=== PATIENT | male | born 1940 | race Caucasian/White ===

== ENCOUNTER 2017-01-19 09:43 | Emergency (ER) | payer MEDICARE ==
--- NOTE | 2017-01-19 10:02 | EDM.PDOC ---
[facility] GENERAL MEDICAL PROBLEM - General Chief Complaint: Gastrointestinal Problem Stated Complaint: CONSTIPATION Time Seen by Provider: 01/19/17 09:49 Source of Information: Reports: Patient History Limitations: Reports: No Limitations - History of Present Illness INITIAL COMMENTS - FREE TEXT/NARRATIVE: Patient reports AAA repair one month ago and has had poor bowel movements since. He is passing small, round, hard stool. No nausea or vomiting. Denies fever. He has tried milk of magnesia, colace, fiber, he readily admits not ambulating or drinking enough. He did quit smoking this year after smoking 1 PPD for 60 years. Medical history includes COPD with symbicort inhaler. He has taken some prune juice to no avail. 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 (see below) (as listed in HPI narrative) - Related Data Allergies Allergy/AdvReac Type Severity Reaction Status Date / Time niacin Allergy Rash Verified 01/19/17 11:26 RAGWEED Allergy Itching Uncoded 01/19/17 11:26 Home Meds: Home Meds Albuterol [Ventolin HFA] 1 puff INH Q4H PRN 11/02/13 [History] Aspirin [Halfprin] 81 mg PO DAILY 11/02/13 [History] Budesonide/Formoterol [Symbicort 160-4.5 MCG] 2 puff INH BID 11/02/13 [History] Social & Family History - Alcohol Use Days Per Week of Alcohol Use: 0 - Recreational Drug Use Recreational Drug Use: No ED ROS GENERAL - Review of Systems Review Of Systems: See Below Constitutional: Reports: No Symptoms HEENT: Reports: No Symptoms Respiratory: Reports: No Symptoms Cardiovascular: Reports: No Symptoms Endocrine: Reports: No Symptoms GI/Abdominal: Reports: Abdominal Pain, Constipation : Reports: No Symptoms Musculoskeletal: Reports: No Symptoms Skin: Reports: No Symptoms Neurological: Reports: No Symptoms Psychiatric: Reports: No Symptoms Hematologic/Lymphatic: Reports: No Symptoms Immunologic: Reports: No Symptoms ED EXAM, GI/ABD - Physical Exam Exam: See Below Exam Limited By: No Limitations General Appearance: Alert, WD/WN, Mild Distress Eyes: Bilateral: EOMI Head: Atraumatic, Normocephalic Respiratory/Chest: No Respiratory Distress, Lungs Clear, Normal Breath Sounds Cardiovascular: Normal Peripheral Pulses, Regular Rate, Rhythm, No Edema GI/Abdominal: Soft, Non-Tender, Hypoactive Bowel Sounds Extremities: Normal Inspection Neurological: Alert, Oriented, CN II-XII Intact, Normal Cognition Psychiatric: Normal Affect, Normal Mood Skin Exam: Warm, Dry, Intact Course - Vital Signs Last Recorded V/S: Last Vital Signs Temp 36.1 C 01/19/17 10:02 Pulse 79 01/19/17 10:02 Resp 20 01/19/17 10:02 BP 143/69 H 01/19/17 10:02 Pulse Ox 97 01/19/17 10:02 - Orders/Labs/Meds Orders: Active Orders 24 hr Category Date Time Status Abdomen 2V AP Flat Upright [CR] Urgent Exams 01/19/17 10:14 Taken Sodium Chloride 0.9% [Saline Flush] Med 01/19/17 10:03 Active 10 ml FLUSH ASDIRECTED PRN Saline Lock Insert [OM.PC] Routine Oth 01/19/17 10:03 Ordered Medication Orders Sodium Chloride (Saline Flush) 10 ml FLUSH ASDIRECTED PRN PRN Reason: Keep Vein Open Meds: Medications Generic Name Dose Route Start Last Admin Trade Name Freq PRN Reason Stop Dose Admin Sodium Chloride 10 ml 01/19/17 10:03 Saline Flush FLUSH ASDIRECTED PRN Keep Vein Open Discontinued Medications Generic Name Dose Route Start Last Admin Trade Name Freq PRN Reason Stop Dose Admin Bisacodyl 10 mg 01/19/17 11:00 01/19/17 11:07 Dulcolax RECTAL 01/19/17 11:01 10 mg ONETIME ONE Administration Sodium Chloride 1,000 mls @ 999 mls/hr 01/19/17 10:03 01/19/17 10:26 Normal Saline IV 01/19/17 11:03 999 mls/hr ONETIME ONE Administration Magnesium Hydroxide 30 ml 01/19/17 10:03 01/19/17 10:39 Milk Of Magnesia PO 01/19/17 10:04 30 ml ONETIME ONE Administration Senna/Docusate Sodium 2 tab 01/19/17 10:03 01/19/17 10:38 Senna Plus PO 01/19/17 10:04 2 tab ONETIME ONE Administration Sodium Biphosphate/Sodium Phosphate 133 ml 01/19/17 10:05 01/19/17 11:15 Fleet Enema RECTAL 01/19/17 10:06 1 dose ONETIME ONE Administration Departure - Departure Time of Disposition: 12:08 Disposition: Home, Self-Care 01 Clinical Impression: Constipation Qualifiers: Constipation type: other constipation type Qualified Code(s): K59.09 - Other constipation - Discharge Information Instructions: Constipation, Adult Referrals: Anabela Louis PA-C [Primary Care Provider] - Forms: ED Department Discharge Additional Instructions: 1. Increase your water intake to at least 75 oz daily. 2. Increase your walking as this will increase your bowel movements. 3. Increase your colace to two tablets twice daily until you are having regular bowel movements. Reduce to one tablet twice daily after that. 4. Increase your intake of fresh fruits and vegetables. 5. Follow up with your primary provider as needed. 6. You can continue to take fiber, but this will actually constipate you if you are not drinking enough water. Please call us with any questions or concerns. - Problem List & Annotations (1) Constipation SNOMED Code(s): 56233020 Code(s): K59.00 - CONSTIPATION, UNSPECIFIED Status: Acute Current Visit: Yes Qualifiers: Constipation type: other constipation type Qualified Code(s): K59.09 - Other constipation - Problem List Review Problem List Initiated/Reviewed/Updated: Yes - My Orders Last 24 Hours: My Active Orders 01/19/17 10:03 Sodium Chloride 0.9% [Saline Flush] 10 ml FLUSH ASDIRECTED PRN Saline Lock Insert [OM.PC] Routine 01/19/17 10:14 Abdomen 2V AP Flat Upright [CR] Urgent - Assessment/Plan Last 24 Hours: My Active Orders 01/19/17 10:03 Sodium Chloride 0.9% [Saline Flush] 10 ml FLUSH ASDIRECTED PRN Saline Lock Insert [OM.PC] Routine 01/19/17 10:14 Abdomen 2V AP Flat Upright [CR] Urgent Assessment:: post surgical constipation Plan: 1. Increase your water intake to at least 75 oz daily. 2. Increase your walking as this will increase your bowel movements. 3. Increase your colace to two tablets twice daily until you are having regular bowel movements. Reduce to one tablet twice daily after that. 4. Increase your intake of fresh fruits and vegetables. 5. Follow up with your primary provider as needed. 6. You can continue to take fiber, but this will actually constipate you if you are not drinking enough water. Please call us with any questions or concerns.
[2017-01-19 10:03] VITALS: BP 143/69
[2017-01-19] MEDS ORDERED: Sodium Chloride 0.9% 10 ML Syringe FLUSH PRN (10:03)
[2017-01-19] MEDS ORDERED: Magnesium Hydroxide 400 MG/5 ML Susp 30 ML Cup PO ONE (10:03)
[2017-01-19] MEDS ORDERED: Sodium Chloride 0.9% 1,000 ML IV ONE (10:03)
[2017-01-19] MEDS ORDERED: Sodium Phosphate,Monobasic/Sodium Phosphate,Dibasic Enema 133 ML Bottle RECTAL ONE (10:05)
[2017-01-19] MEDS ORDERED: Bisacodyl 10 MG Supp RECTAL ONE (11:00)
== END 2017-01-19 12:14 | disposition home or self-care (01) ==
LOC: SUPCPDRO 09:43 → VM.ED 09:43
DX: K59.09 Other constipation (principal); J44.9 Chronic obstructive pulmonary disease, unspecified; Z88.8 Allergy status to other drugs, medicaments and biological substances; Z91.048 Other nonmedicinal substance allergy status; Z79.82 Long term (current) use of aspirin; Z87.891 Personal history of nicotine dependence
CPT/HCPCS: 74020; 96365; 96366; 99283; A9270; J7030

== ENCOUNTER 2022-07-13 09:14 | Observation (INO) | payer MEDICARE ==
[2022-07-13] MEDS ORDERED: Meclizine 25 MG Tab PO ONE (09:33)
[2022-07-13] MEDS ORDERED: Sodium Chloride 0.9% 1,000 ML IV ONE (09:33)
[2022-07-13] MEDS ORDERED: Ondansetron 4 MG/2 ML SDV IVPUSH ONE (09:33)
[2022-07-13 09:58] LABS: CHLORIDE,CL 97 mmol/L (98-107); SODIUM,NA 137 mmol/L (136-145)
[2022-07-13 10:01] LABS: ANION GAP 5.4 mmol/L (5-15); ESTIMATED GFR 93 mL/min (>=60)
[2022-07-13 10:22] LABS: CORONAVIRUS COVID-19 NAA NEGATIVE (NEGATIVE)
[2022-07-13] MEDS ORDERED: Iopamidol 612 MG/ML 100 ML Bottle IVPUSH ONE (10:47)
[2022-07-13] MEDS ORDERED: Iopamidol 755 Mg/ML 100 ML Bottle IVPUSH ONE (10:48)
[2022-07-13] MEDS ORDERED: Ondansetron 4 MG/2 ML SDV IV PRN (14:00)
[2022-07-13] MEDS ORDERED: Acetaminophen 325 MG Tab PO PRN (14:00)
[2022-07-13] MEDS ORDERED: Sodium Chloride 0.9% 10 ML Syringe FLUSH PRN (14:00)
[2022-07-13] MEDS ORDERED: Ondansetron 4 MG Tab.DIS PO PRN (14:00)
[2022-07-13] MEDS ORDERED: SALMETEROL INH PRN (14:05)
[2022-07-13] MEDS ORDERED: FLUTICASONE INH PRN (14:05)
[2022-07-13] MEDS: Sodium Chloride 0.9% 1,000 ML IV SCH (17:04)
[2022-07-13] MEDS: Meclizine 25 MG Tab PO SCH (20:54)
[2022-07-13] MEDS: atorvaSTATin 10 MG Tab PO SCH (20:54)
[2022-07-14] MEDS: Sodium Chloride 0.9% 1,000 ML IV SCH ×2 (06:06→21:41)
[2022-07-14] MEDS: Meclizine 25 MG Tab PO SCH ×3 (08:18→20:23)
[2022-07-14] MEDS: Aspirin 81 MG Tab.EC PO SCH (08:18)
[2022-07-14] MEDS: TERBINAFINE HCL 250 MG PO SCH (08:19)
[2022-07-14 08:30] LABS: CHLORIDE,CL 102 mmol/L (98-107); SODIUM,NA 139 mmol/L (136-145)
[2022-07-14 08:38] LABS: ANION GAP 7.2 mmol/L (5-15); ESTIMATED GFR 98 mL/min (>=60)
[2022-07-14] MEDS: atorvaSTATin 10 MG Tab PO SCH (20:24)
[2022-07-15] MEDS: Aspirin 81 MG Tab.EC PO SCH (08:30)
[2022-07-15] MEDS: Meclizine 25 MG Tab PO SCH ×3 (08:30→21:01)
[2022-07-15] MEDS: TERBINAFINE HCL 250 MG PO SCH (08:32)
[2022-07-15] MEDS: Sodium Chloride 0.9% 1,000 ML IV SCH (11:44)
[2022-07-15] MEDS: guaiFENesin 600 MG Tab.ER PO SCH ×2 (12:36→21:01)
[2022-07-15] MEDS: atorvaSTATin 10 MG Tab PO SCH (21:01)
[2022-07-15] MEDS: Albuterol HFA 18 Gm Inhaler INH PRN (21:04)
[2022-07-16] MEDS: Sodium Chloride 0.9% 1,000 ML IV SCH (00:23)
[2022-07-16] MEDS: Albuterol HFA 18 Gm Inhaler INH PRN ×3 (05:03→17:09)
[2022-07-16 07:09] LABS: CHLORIDE,CL 103 mmol/L (98-107); SODIUM,NA 141 mmol/L (136-145)
[2022-07-16 07:10] LABS: ANION GAP 7.8 mmol/L (5-15); ESTIMATED GFR 98 mL/min (>=60)
[2022-07-16] MEDS: Meclizine 25 MG Tab PO SCH ×2 (08:42→12:29)
[2022-07-16] MEDS: guaiFENesin 600 MG Tab.ER PO SCH ×2 (08:42→12:29)
[2022-07-16] MEDS: Aspirin 81 MG Tab.EC PO SCH (08:42)
[2022-07-16] MEDS: TERBINAFINE HCL 250 MG PO SCH (08:58)
[2022-07-16 17:55] VITALS: BP 171/77; PULSE 78
== END 2022-07-16 17:40 | disposition home or self-care (01) ==
LOC: VM.ED 09:14 → VM.MS 13:34
PROVIDERS: ADMIT Physician Assistant Medical; ATTEND Physician Assistant Medical
DX: R42 Dizziness and giddiness (principal); J44.9 Chronic obstructive pulmonary disease, unspecified; F17.200 Nicotine dependence, unspecified, uncomplicated; Z88.8 Allergy status to other drugs, medicaments and biological substances; Z79.82 Long term (current) use of aspirin; Z79.899 Other long term (current) drug therapy; Z20.822 Contact with and (suspected) exposure to COVID-19; Z91.048 Other nonmedicinal substance allergy status
CPT/HCPCS: 0240U; 36415; 70450; 71046; 71275; 80053; 81003; 84484; 85025; 85379; 86140; 90662; 93005; 94760; 96374; 97161-GP; 97530-GP; 99285-25; A9270-GY; G0008; G0378; J2405; J7030; Q9967

== ENCOUNTER 2022-09-08 00:53 | Inpatient (IN) | payer MEDICARE ==
[2022-09-08] MEDS ORDERED: Sodium Chloride 0.9% 1,000 ML IV ONE (01:38)
[2022-09-08 01:42] LABS: ANION GAP 10.6 mmol/L (5-15)
[2022-09-08] MEDS ORDERED: Doxycycline Monohydrate 100 MG Cap PO SCH (01:45)
[2022-09-08] MEDS ORDERED: cefTRIAXone 2 GM Vial IVPUSH SCH (01:45)
[2022-09-08 01:58] LABS: RESPIRATORY SYNCYTIAL VIR NAA NEGATIVE (NEGATIVE)
[2022-09-08 02:00] LABS: CORONAVIRUS COVID-19 NAA POSITIVE (NEGATIVE)
[2022-09-08] MEDS ORDERED: Ibuprofen 200 MG Tab PO PRN (02:49)
[2022-09-08] MEDS ORDERED: Ondansetron 4 MG Tab.DIS PO PRN (02:49)
[2022-09-08] MEDS ORDERED: Albuterol/Ipratropium 3.0-0.5 MG/3 ML Neb Soln NEB PRN (02:49)
[2022-09-08] MEDS ORDERED: Sodium Chloride 0.9% 10 ML Syringe FLUSH PRN (02:49)
[2022-09-08] MEDS ORDERED: REMDESIVIR 200 MG in Sodium Chloride 0.9% 250 ML IV ONE (03:01)
[2022-09-08] MEDS ORDERED: REMDESIVIR 200 MG ONE (04:13)
[2022-09-08] MEDS ORDERED: Meclizine 25 MG Tab PO PRN (06:58)
[2022-09-08] MEDS ORDERED: Albuterol HFA 18 Gm Inhaler INH PRN (06:58)
[2022-09-08] MEDS ORDERED: Azithromycin 250 MG Tab PO ONE (07:38)
[2022-09-08] MEDS: Enoxaparin 40 MG/0.4 ML Syringe SUBCUT SCH (08:18)
[2022-09-08] MEDS: Aspirin 81 MG Tab.EC PO SCH (08:19)
[2022-09-08] MEDS: Dexamethasone 4 MG/ML SDV IVPUSH SCH (08:20)
[2022-09-08] MEDS: Formoterol/Mometasone 100-5 MCG 8.8 GM Inhaler IH SCH ×2 (08:21→20:38)
[2022-09-08] MEDS: SOLIFENACIN 5 MG PO SCH (13:49)
[2022-09-08] MEDS ORDERED: Enoxaparin 40 MG/0.4 ML Syringe SUBCUT SCH (20:00)
[2022-09-08] MEDS: Pregabalin 50 MG Cap PO PRN (22:40)
[2022-09-08] MEDS: ALPRAZolam 0.25 MG Tab PO PRN (22:40)
[2022-09-09] MEDS: REMDESIVIR 100 MG in Sodium Chloride 0.9% 100 ML IV SCH (03:45)
[2022-09-09] MEDS: ALPRAZolam 0.25 MG Tab PO PRN ×2 (08:57→20:29)
[2022-09-09] MEDS: Acetaminophen 325 MG Tab PO PRN ×2 (08:57→20:29)
[2022-09-09] MEDS: Aspirin 81 MG Tab.EC PO SCH (08:57)
[2022-09-09] MEDS: Azithromycin 250 MG Tab PO SCH (08:57)
[2022-09-09] MEDS: Dexamethasone 4 MG/ML SDV IVPUSH SCH (08:58)
[2022-09-09] MEDS: Enoxaparin 40 MG/0.4 ML Syringe SUBCUT SCH (08:59)
[2022-09-09] MEDS: Formoterol/Mometasone 100-5 MCG 8.8 GM Inhaler IH SCH ×2 (09:00→20:30)
[2022-09-09] MEDS: SOLIFENACIN 5 MG PO SCH (09:00)
[2022-09-09] MEDS: Pregabalin 50 MG Cap PO PRN (18:26)
[2022-09-10] MEDS: REMDESIVIR 100 MG in Sodium Chloride 0.9% 100 ML IV SCH (03:24)
[2022-09-10] MEDS: Pregabalin 50 MG Cap PO PRN (03:28)
[2022-09-10] MEDS: Acetaminophen 325 MG Tab PO PRN (06:21)
[2022-09-10] MEDS: Aspirin 81 MG Tab.EC PO SCH (09:35)
[2022-09-10] MEDS: Azithromycin 250 MG Tab PO SCH (09:35)
[2022-09-10] MEDS: Enoxaparin 40 MG/0.4 ML Syringe SUBCUT SCH (09:35)
[2022-09-10] MEDS: SOLIFENACIN 5 MG PO SCH (09:36)
[2022-09-10] MEDS: Formoterol/Mometasone 100-5 MCG 8.8 GM Inhaler IH SCH ×2 (09:37→21:28)
[2022-09-10] MEDS: dexAMETHasone 2 MG, dexAMETHasone 4 MG PO SCH ×2 (11:09)
[2022-09-10] MEDS: Dexamethasone 4 MG/ML SDV IVPUSH SCH (19:45)
[2022-09-11] MEDS: ALPRAZolam 0.25 MG Tab PO PRN ×3 (01:10→14:01)
[2022-09-11] MEDS: Enoxaparin 40 MG/0.4 ML Syringe SUBCUT SCH (06:56)
[2022-09-11] MEDS ORDERED: REMDESIVIR 100 MG in Sodium Chloride 0.9% 100 ML IV SCH (07:00)
[2022-09-11] MEDS: Aspirin 81 MG Tab.EC PO SCH (08:34)
[2022-09-11] MEDS: Azithromycin 250 MG Tab PO SCH (08:34)
[2022-09-11] MEDS: dexAMETHasone 2 MG, dexAMETHasone 4 MG PO SCH ×2 (08:34)
[2022-09-11] MEDS: Formoterol/Mometasone 100-5 MCG 8.8 GM Inhaler IH SCH (08:35)
[2022-09-11] MEDS: SOLIFENACIN 5 MG PO SCH (08:35)
[2022-09-11 11:47] VITALS: BP 151/70; PULSE 55
== END 2022-09-11 16:15 | disposition swing bed (61) | DRG 177 ==
LOC: VM.ED 00:53 → VM.MS 02:20
PROVIDERS: ADMIT Family Medicine; ATTEND Family Medicine
PROC: XW033E5 Introduction of Remdesivir Anti-infective into Peripheral Vein, Percutaneous Approach, New Technology Group 5 (ICD-10-PCS; principal; 2022-09-08)
PROC: 3E0333Z Introduction of Anti-inflammatory into Peripheral Vein, Percutaneous Approach (ICD-10-PCS; 2022-09-08)
DX: U07.1 COVID-19 (principal); J12.82 Pneumonia due to coronavirus disease 2019; J44.1 Chronic obstructive pulmonary disease with (acute) exacerbation; K59.09 Other constipation; Z95.5 Presence of coronary angioplasty implant and graft; Z87.891 Personal history of nicotine dependence; G89.29 Other chronic pain; H54.7 Unspecified visual loss; F17.200 Nicotine dependence, unspecified, uncomplicated; E78.5 Hyperlipidemia, unspecified; B35.1 Tinea unguium; M54.50 Low back pain, unspecified; I25.10 Atherosclerotic heart disease of native coronary artery without angina pectoris; Z88.8 Allergy status to other drugs, medicaments and biological substances; Z79.82 Long term (current) use of aspirin; Z79.899 Other long term (current) drug therapy
CPT/HCPCS: 0241U; 36415; 71045; 80053; 80076; 81001; 83605; 85025; 85610; 87040; 94760; 96360; 97110-GP; 97116-GP; 97162-GP; 97165-GO; 97535-GO; 99284; 99285-25; A9270-GY; J0248; J0696; J1100; J1650; J7030; J7050; J8540

== ENCOUNTER 2022-09-11 12:16 | Inpatient (IN) | payer MEDICARE ==
[2022-09-11] MEDS ORDERED: Ondansetron 4 MG Tab.DIS PO PRN (15:42)
[2022-09-11] MEDS ORDERED: Ibuprofen 200 MG Tab PO PRN (15:42)
[2022-09-11] MEDS ORDERED: Acetaminophen 325 MG Tab PO PRN (15:42)
[2022-09-11] MEDS ORDERED: Albuterol HFA 18 Gm Inhaler INH PRN (15:42)
[2022-09-11] MEDS ORDERED: Meclizine 25 MG Tab PO PRN (15:42)
[2022-09-11] MEDS ORDERED: Albuterol/Ipratropium 3.0-0.5 MG/3 ML Neb Soln NEB PRN (15:42)
[2022-09-11] MEDS: ALPRAZolam 0.25 MG Tab PO PRN (20:27)
[2022-09-11] MEDS: Formoterol/Mometasone 100-5 MCG 8.8 GM Inhaler IH SCH (20:27)
[2022-09-11] MEDS: Pregabalin 50 MG Cap PO PRN (20:28)
[2022-09-12] MEDS: ALPRAZolam 0.25 MG Tab PO PRN ×3 (02:19→23:41)
[2022-09-12] MEDS: Formoterol/Mometasone 100-5 MCG 8.8 GM Inhaler IH SCH ×2 (06:08→20:11)
[2022-09-12] MEDS ORDERED: Albuterol HFA 18 Gm Inhaler INH PRN (08:34)
[2022-09-12] MEDS ORDERED: ALPRAZolam 0.25 MG Tab PO PRN (08:34)
[2022-09-12] MEDS ORDERED: Albuterol/Ipratropium 3.0-0.5 MG/3 ML Neb Soln NEB PRN (08:34)
[2022-09-12] MEDS ORDERED: Acetaminophen 325 MG Tab PO PRN (08:34)
[2022-09-12] MEDS ORDERED: Aspirin 81 MG Tab.EC PO SCH (09:00)
[2022-09-12] MEDS ORDERED: Azithromycin 250 MG Tab PO SCH ×2 (09:00)
[2022-09-12] MEDS: Aspirin 81 MG Tab.EC PO SCH (09:49)
[2022-09-12] MEDS: Pregabalin 50 MG Cap PO PRN (23:41)
[2022-09-13] MEDS: Formoterol/Mometasone 100-5 MCG 8.8 GM Inhaler IH SCH ×2 (06:24→20:16)
[2022-09-13] MEDS: Aspirin 81 MG Tab.EC PO SCH (09:15)
[2022-09-13] MEDS: ALPRAZolam 0.25 MG Tab PO PRN (20:10)
[2022-09-13] MEDS: Pregabalin 50 MG Cap PO PRN (20:10)
[2022-09-14] MEDS: Formoterol/Mometasone 100-5 MCG 8.8 GM Inhaler IH SCH ×2 (06:13→20:27)
[2022-09-14] MEDS: Aspirin 81 MG Tab.EC PO SCH (09:32)
[2022-09-14] MEDS: ALPRAZolam 0.25 MG Tab PO PRN (16:12)
[2022-09-15 06:47] VITALS: BP 141/78; PULSE 64
[2022-09-15] MEDS: Formoterol/Mometasone 100-5 MCG 8.8 GM Inhaler IH SCH (06:55)
[2022-09-15] MEDS: Aspirin 81 MG Tab.EC PO SCH (08:46)
== END 2022-09-15 09:50 | disposition home or self-care (01) | DRG 178 ==
LOC: VM.MS 16:25
PROVIDERS: ADMIT Family Medicine; ATTEND Family Medicine
DX: U07.1 COVID-19 (principal); J44.1 Chronic obstructive pulmonary disease with (acute) exacerbation; J96.11 Chronic respiratory failure with hypoxia; E78.5 Hyperlipidemia, unspecified; I25.10 Atherosclerotic heart disease of native coronary artery without angina pectoris; I71.40 Abdominal aortic aneurysm, without rupture, unspecified; R41.0 Disorientation, unspecified; G89.29 Other chronic pain; M54.9 Dorsalgia, unspecified; N32.81 Overactive bladder; B35.1 Tinea unguium; Z99.81 Dependence on supplemental oxygen; T38.0X5A Adverse effect of glucocorticoids and synthetic analogues, initial encounter; Y92.89 Other specified places as the place of occurrence of the external cause
CPT/HCPCS: 95851-GO; 97110-GP; 97116-GP; 97530-GO; 97535-GO; A9270-GY

== ENCOUNTER 2022-09-20 08:18 | Emergency (ER) | payer MEDICARE ==
[2022-09-20 08:31] VITALS: BP 169/86; PULSE 74
[2022-09-20 09:10] LABS: ANION GAP 9.7 mmol/L (5-15); CHLORIDE,CL 101 mmol/L (98-107); ESTIMATED GFR 89 mL/min (>=60); SODIUM,NA 140 mmol/L (136-145)
== END 2022-09-20 10:02 | disposition home or self-care (01) ==
LOC: VM.ED 08:18
DX: K59.09 Other constipation (principal); J44.9 Chronic obstructive pulmonary disease, unspecified; Z88.1 Allergy status to other antibiotic agents; Z91.048 Other nonmedicinal substance allergy status; Z79.82 Long term (current) use of aspirin; Z79.899 Other long term (current) drug therapy
CPT/HCPCS: 36415; 74019; 80053; 85025; 99284